=== PATIENT | male | born 1985 | race Caucasian/White ===

== ENCOUNTER 2018-09-27 21:41 | Emergency (ER) | payer BC ==
[~2018-09-27] VITALS: Wt 71.7 kg
[2018-09-27] MEDS ORDERED: DEXAMETHASONE4 MG PO (21:58)
[2018-09-28 01:39] LABS: BILIRUBIN NEGATIVE (NEGATIVE); BLOOD NEGATIVE (NEGATIVE); CLARITY CLEAR (CLEAR); COLOR YELLOW (YELLOW); GLUCOSE NEGATIVE (NEGATIVE); KETONE TRACE (NEGATIVE); LEUKO ESTERASE NEGATIVE (NEGATIVE); NITRITE NEGATIVE (NEGATIVE); PH 6.5 (5.0-9.0)
[2018-09-28 01:46] LABS: MUCOUS TRACE; WBC 0-2 wbc/hpf (0-5)
[2018-09-28 01:48] LABS: URINE AMPHETAMINES < 1000 (1000ng/ml); URINE BARBITURATES < 200 (200ng/ml); URINE BENZODIAZEPINES < 200 (200ng/ml); URINE CANNABINOIDS (THC) < 50 (50ng/ml); URINE COCAINE < 300 (300ng/ml); URINE METHADONE < 300 (300ng/ml); URINE OPIATES < 300 (300ng/ml)
[2018-09-28 01:51] LABS: URINE PHENCYCLIDINE < 25 (25ng/ml)
[2018-09-28] MEDS ORDERED: NORCO 5-325 TA1 EACH PO (02:00)
[2018-09-28] MEDS ORDERED: CYCLOBENZAPRINE5 M3 PO (02:00)
[2018-09-28] MEDS ORDERED: NAPROSYN500 MG PO (02:00)
== END 2018-09-28 02:22 | disposition home or self-care (01) ==
LOC: ED 21:41
PROVIDERS: Emergency Medicine Emergency Medical Services
DX: M54.41 Lumbago with sciatica, right side (principal); Z79.899 Other long term (current) drug therapy

== ENCOUNTER → 2018-10-01 | Outpatient (CLI) | payer BC ==
[~2018-10-01] MED LIST: CYCLOBENZAPRINE5 M3 PO; DEXAMETHASONE4 MG PO; NAPROSYN500 MG PO; NORCO 5-325 TA1 EACH PO
== END | disposition home or self-care (01) ==
LOC: RAD 15:28
DX: M54.31 Sciatica, right side (principal); R20.0 Anesthesia of skin